=== PATIENT | male | born 1965 | race Caucasian/White ===

== ENCOUNTER 2017-12-19 06:51 | Day surgery (SDC) | payer OTHER ==
[~2017-12-19 06:51] MED LIST: Lactated Ringers 1,000 ML IV SCH
[2017-12-19] MEDS ORDERED: Propofol 200 MG/20 ML SDV IV ONE (08:00)
[2017-12-19] MEDS ORDERED: Midazolam 1 MG/ML 2 ML SDV IV ONE (08:00)
--- NOTE | 2017-12-19 08:24 | PCM.OPNOTE ---
- General Post-Op/Procedure Note Date of Surgery/Procedure: 12/19/17 Operative Procedure(s): c scope with bx Findings: normal colon, normal terminal ileum Pre Op Diagnosis: colon cancer screening. hx of loose stools, lactose intolerance. family hx of Crohn's Post-Op Diagnosis: normal colon, normal terminal ileum [place] [facility] [place]geon: Lukas Latham Anesthesia Provider: Dominguez Oconnell Pathology: colon and terminal ileum Complications: None Condition: Good Free Text/Narrative:: see dictation #[id number]
--- NOTE | 2017-12-19 09:15 | OR ---
DATE OF OPERATION: 12/19/2017 SURGEON: Lukas Latham MD PROCEDURE PERFORMED: Colonoscopy with random biopsy. PREOPERATIVE DIAGNOSES: Need for colon cancer screening and history of loose stools. POSTOPERATIVE DIAGNOSIS: Normal scope and normal terminal ileum. INDICATIONS FOR PROCEDURE: This is a 52-year-old white male who presents for his initial screening colonoscopy. He has no significant medical issues except he does have some loose stools on occasion apparently, which has been attributed to lactose intolerance in the past. Apparently, his daughter does have a history of Crohn disease. He was offered and accepted the scope. DESCRIPTION OF PROCEDURE: After an excellent IV sedation was administered, digital rectal exam was performed. No marked abnormality was noted. The flexible colonoscope was inserted and advanced into the cecum without difficulty and the terminal ileum was then intubated and the scope was advanced approximately 5 cm. The following findings were noted: Terminal ileum unremarkable. Random biopsies were taken. Ascending colon: Unremarkable. Random biopsies were taken. Transverse colon: Unremarkable. Random biopsies were taken. Descending colon: Unremarkable. Random biopsy. Sigmoid and rectum: Unremarkable. Random biopsies were taken. Colon was deflated. Scope was removed. The patient tolerated the procedure well and was taken to recovery room in good condition. /[id number] /MODL
== END 2017-12-19 09:40 | disposition home or self-care (01) ==
LOC: FB.SDS 06:51
PROVIDERS: ATTEND Surgery
DX: R19.7 Diarrhea, unspecified (principal); Z79.2 Long term (current) use of antibiotics; F32.9 Major depressive disorder, single episode, unspecified; Z98.890 Other specified postprocedural states
CPT/HCPCS: 45380; 88305; J2250; J2704; J7120